=== PATIENT | male | born 2000 ===

== ENCOUNTER → 2024-11-14 | Outpatient (REF) | payer OTHER ==
[2024-11-14 20:15] LABS: Trichomonas vaginalis (AMP) NOT DETECTED (NEGATIVE)
[2024-11-14 20:39] LABS: GC DNA AMPLIFICATION NEGATIVE (NEGATIVE)
== END ==
LOC: M LAB REF 19:00
PROVIDERS: ATTEND Student in an Organized Health Care Education/Training Program
DX: R30.0 Dysuria (principal)